=== PATIENT | female | born 1995 | race Hispanic/Latino ===

== ENCOUNTER 2018-05-24 17:01 | Emergency (ER) | payer SELFPAY ==
[2018-05-24] MEDS ORDERED: LIDOCAINE HCL MPF 1% 5ML VIAL ONE (17:10)
[2018-05-24] MEDS ORDERED: TETANUS/DIPHTHERIA TOXOID [ADULT] 0.5 ML VIAL IM ONE (17:37)
== END 2018-05-24 17:48 | disposition home or self-care (01) ==
LOC: EDH 17:01
DX: S61.212A Laceration without foreign body of right middle finger without damage to nail, initial encounter (principal); W25.XXXA Contact with sharp glass, initial encounter; Y93.89 Activity, other specified; Y92.098 Other place in other non-institutional residence as the place of occurrence of the external cause; Y99.8 Other external cause status
CPT/HCPCS: 12001; 73140; 90471; 90714; 99284; J3490